=== PATIENT | female | born 1945 | race Caucasian/White ===

== ENCOUNTER 2018-02-04 10:00 | Outpatient (CLI) | payer BC ==
[2018-02-04 10:59] LABS: #Eosinphils 0.1 thou/uL (0.0-0.7); #Lymphocytes 1.3 thou/uL (1.20-3.40); #Monocytes 0.6 thou/uL (0.11-0.59); #Neutrophils 3.2 thou/uL (1.40-6.50); %Basophils 0.5 % (0.0-1.0); %Eosinophils 2.1 % (0.0-10.0); %Lymphocytes 25.4 % (21.0-51.0); %Monocytes 10.7 % (0.0-10.0); %Neutrophils 61.2 % (42.0-75.0); Hemoglobin 13.9 g/dL (12.0-16.0); Mean Corpuscular HGB CONC 34.2 g/dL (32.0-36.0); Mean Corpuscular Volume 90.8 fl (81.0-99.0); Mean Platelet Volume 7.1 fL (7.4-10.4); Platelet Count 242 thou/uL (130-400); Red Blood Cell (RBC) Count 4.47 mill/uL (4.20-5.40); White Blood Cell (WBC) Count 5.2 thou/uL (4.8-10.8)
[2018-02-04 11:25] LABS: ALT (SGPT) 28 U/L (8-55); AST (SGOT) 16 U/L (5-34); Albumin 4.6 g/dL (3.4-4.8); Alkaline Phosphatase 77 U/L (40-150); Anion Gap 13 mmol/L (10-20); BUN (Urea Nitrogen) 12 mg/dL (9.8-20.1); Bilirubin, Direct 0.2 mg/dL (0.1-0.3); Bilirubin, Total 0.7 mg/dL (0.2-1.2); Calc. Creatinine Clearance 0 mL/min (70-130); Calcium 9.7 mg/dL (7.8-10.44); Carbon Dioxide 27 mmol/L (23-31); Chloride 103 mmol/L (98-107); Estimated GFR-MDRD 68; Glucose 94 mg/dL (83-110); Potassium 4.3 mmol/L (3.5-5.1); Protein, Total 7.1 g/dL (6.0-8.3); Sodium 139 mmol/L (136-145)
== END 2018-02-04 10:01 | disposition home or self-care (01) ==
LOC: LABBT 10:00
PROVIDERS: ATTEND Surgery
DX: Z01.818 Encounter for other preprocedural examination (principal); K80.20 Calculus of gallbladder without cholecystitis without obstruction
CPT/HCPCS: 80048; 80076; 85025; 93005; 93010

== ENCOUNTER 2018-02-05 07:00 | Day surgery (SDC) | payer BC ==
[2018-02-04 10:17] VITALS: BMI 25.1
[2018-02-05] MEDS ORDERED: cefOXitin 2 GM VIAL ONE (07:18)
[2018-02-05] MEDS ORDERED: Sodium Chloride 0.9% 100 ML ONE (07:18)
[2018-02-05] MEDS ORDERED: Morphine 4 MG/ML VIAL ONE (09:11)
[2018-02-05] MEDS ORDERED: Fentanyl 100 MCG/2 ML VIAL ONE (09:11)
[2018-02-05] MEDS ORDERED: Bupivacaine/Epinephrine 0.25% 30 ML VIAL ONE (09:12)
[2018-02-05] MEDS ORDERED: Ondansetron HCl/PF 4 MG/2 ML Vial ONE (10:28)
[2018-02-05] MEDS ORDERED: Promethazine HCl 25 MG/ML VIAL ONE (10:28)
--- NOTE | 2018-02-05 14:06 | OP ---
PREOPERATIVE DIAGNOSIS: Symptomatic gallstones. POSTOPERATIVE DIAGNOSIS: Symptomatic gallstones. PROCEDURE: Laparoscopic cholecystectomy. SURGEON: Kolby Machado M.D. ANESTHESIA: General. ESTIMATED BLOOD LOSS: Minimal. COMPLICATIONS: None. FINDINGS: Chronic cholecystitis. PROCEDURE IN DETAIL: The patient was taken to the Operating Room and laid supine on the Operating Ro om table. After general anesthetic was obtained, the abdomen was prepped and draped in a sterile fas hion. A curved incision was made below the umbilicus. Cautery was used to dissect down to the umbil ical fascia. Umbilical fascia was incised and held up using a Brodie. The abdominal cavity was ente red using a Marisol clamp. Holding stitch of Vicryl was placed on each side of the fascia. Limon tro car was placed. High-flow pneumoperitoneum was obtained. An upper midline 5-mm port and two right u pper quadrant 5-mm ports were placed under direct camera visualization. The gallbladder was retracte d from the gallbladder fossa. The peritoneum of the gallbladder was opened anteriorly and posteriorl y. The critical view triangle was seen showing only the cystic duct and cystic artery branching from medial to lateral. There were no other branching structures. Two clips were placed proximally on t he cystic duct and one laterally. It was cut using laparoscopic scissors. The cystic artery was luz maria en in the same way. Electrocautery was then used to dissect the gallbladder out of the gallbladder f terry. The gallbladder was placed in an Endo catch bag and brought out through the Limon. There was no bleeding or bile in the liver bed. The cystic duct stump and cystic artery stump were intact wit hout evidence of extravasation or bleeding. All port sites were infiltrated using local anesthesia. All ports were removed under camera visualization. Pneumoperitoneum was let down. The Vicryl was u sed to close the fascial defect below the umbilicus. All incisions were irrigated and closed using 4 -0 Monocryl and DermaBond. The patient was en route to Recovery in stable condition. All instrument counts, needle counts and lap counts were correct.
[2018-02-05] MEDS ORDERED: PHENYLEPHRINE-NS 100 MCG/ML 10 ML SYRINGE ONE (16:14)
[2018-02-05] MEDS ORDERED: Lidocaine 1% PF 5 ML VIAL ONE (16:14)
[2018-02-05] MEDS ORDERED: Glycopyrrolate 0.2 MG/ML 5 ML SYRINGE ONE (16:14)
[2018-02-05] MEDS ORDERED: PROPOFOL 200 MG/20 ML VIAL ONE (16:14)
[2018-02-05] MEDS ORDERED: Ketorolac Tromethamine 30 MG/ML VIAL ONE (16:14)
[2018-02-05] MEDS ORDERED: Dexamethasone 20 MG/5 ML VIAL ONE (16:14)
== END 2018-02-05 12:54 | disposition home or self-care (01) ==
LOC: SDC 07:00
PROVIDERS: ATTEND Surgery
PROC: 0FT44ZZ Resection of Gallbladder, Percutaneous Endoscopic Approach (ICD-10-PCS; principal; 2018-02-05)
DX: K81.1 Chronic cholecystitis (principal); K21.9 Gastro-esophageal reflux disease without esophagitis; K58.9 Irritable bowel syndrome, unspecified; F32.9 Major depressive disorder, single episode, unspecified; Z88.0 Allergy status to penicillin; Z79.899 Other long term (current) drug therapy
CPT/HCPCS: 88304; 96374; J0694; J1100; J1885; J2001; J2270; J2405; J2550; J2704; J3010; J7050

== ENCOUNTER 2018-03-14 10:48 | Outpatient (CLI) | payer BC | END 2018-03-14 10:49 | disposition home or self-care (01) | LOC: BICMAMMO 10:48 | PROVIDERS: ATTEND Obstetrics & Gynecology | DX: Z12.31 Encounter for screening mammogram for malignant neoplasm of breast (principal); Z80.3 Family history of malignant neoplasm of breast | CPT/HCPCS: 77063; 77067 ==

== ENCOUNTER 2019-03-18 14:23 | Outpatient (CLI) | payer BC ==
--- NOTE | 2019-03-18 15:07 | MMO ---
Bilateral MAMMO Bilat Screen [facility]. CLINICAL HISTORY: Patient is 73 years old and is seen for screening. The patient has the following family history of breast cancer: mother, at age 84. The patient has no personal history of cancer. VIEWS: The views performed were: bilateral craniocaudal with tomosynthesis and bilateral mediolateral oblique with tomosynthesis. FILMS COMPARED: The present examination has been compared to prior imaging studies performed at [facility] [place] on 12/17/2013, 12/28/2015, 03/05/2017 and 03/14/2018. MAMMOGRAM FINDINGS: There are scattered fibroglandular densities. There are no suspicious masses, suspicious calcifications, or new areas of architectural distortion. IMPRESSION: THERE IS NO MAMMOGRAPHIC EVIDENCE OF MALIGNANCY. A ROUTINE FOLLOW-UP MAMMOGRAM IN 1 YEAR IS RECOMMENDED. THE RESULTS OF THIS EXAM WERE SENT TO THE PATIENT. ACR BI-RADS Category 1 - Negative MAMMOGRAPHY NOTE: 1. A negative mammogram report should not delay a biopsy if a dominant of clinically suspicious mass is present. 2. Approximately 10% to 15% of breast cancers are not detected by mammography. 3. Adenosis and dense breasts may obscure an underlying neoplasm. Reported by: PROSPER NOBLE MD Electonically Signed: [id number]
--- NOTE | 2019-03-18 15:11 | RAD ---
2 views lumbar spine: 03/18/2019 COMPARISON: None HISTORY: Low back pain FINDINGS: 5 lumbar type vertebral bodies are present. Pedicles appear intact on frontal imaging. Clip s in the right upper quadrant suggest prior cholecystectomy. Lateral exam demonstrates normal vertebral body height and alignment. At L1-2 and L2-3 there is mild disc space narrowing and anterior osteophyte formation. No acute osseous abnormality noted. IMPRESSION: Mild degenerative change within the lumbar spine.
--- NOTE | 2019-03-18 15:56 | RAD ---
PELVIS ONE VIEW: 03/18/19 HISTORY: Low back pain. COMPARISON: None. FINDINGS: Mild narrowing of both hip joints. Obturator rings are intact. SI joints are normal. IMPRESSION: No dilated loops of large or small bowel in the pelvis. Sacrum is intact. IMPRESSION: Minimal degenerative changes of both hips. POS: HOME
--- NOTE | 2019-03-18 15:58 | RAD ---
LEFT HIP TWO VIEW: 03/18/19 HISTORY: Pain. COMPARISON: None. FINDINGS: Minimal narrowing of the left hip joint. Small acetabular osteophyte formation. Obturator ring is int act. IMPRESSION: Low grade degenerative change left hip. POS: HOME
--- NOTE | 2019-03-18 16:00 | RAD ---
RIGHT HIP 2 VIEWS: HISTORY: Pain. COMPARISON: None. FINDINGS: Small acetabular osteophyte formation and hip joint narrowing. The obturator ring is intact. Soft t issues unremarkable. IMPRESSION: Mild degenerative change. POS: HOME
== END 2019-03-18 14:24 | disposition home or self-care (01) ==
LOC: BICMAMMO 14:23
PROVIDERS: ATTEND Obstetrics & Gynecology
DX: Z12.31 Encounter for screening mammogram for malignant neoplasm of breast (principal); M25.551 Pain in right hip; M25.552 Pain in left hip; M54.5 Low back pain; M16.0 Bilateral primary osteoarthritis of hip; M47.816 Spondylosis without myelopathy or radiculopathy, lumbar region; Z80.3 Family history of malignant neoplasm of breast
CPT/HCPCS: 72100; 72170; 77063; 77067

== ENCOUNTER 2019-10-02 09:28 | Outpatient (CLI) | payer BC ==
--- NOTE | 2019-10-02 10:35 | ULT ---
EXAM: US Hepatic Doppler PROVIDED CLINICAL HISTORY: Abnormal liver enzymes COMPARISON: CT abdomen on 03/31/2015 FINDINGS: There is a heterogeneous mass seen in the right hepatic lobe measuring 2.8 cm in maximal dimensions. A hemangioma was seen in the right hepatic lobe on study of 03/31/2015, and on that study the hemangioma measured approximately 2 cm. No additional hepatic lesion is identified. The spleen is normal in size and has a normal sonographic appearance. The visualized portions of the pancreas and visualized portion of the IVC demonstrate a normal sonogr aphic appearance. There is suggestion of mild atherosclerotic plaque in the proximal abdominal aorta. Hepatic Doppler evaluation with spectral analysis and color flow: Normal directional flow is seen within the hepatic, portal, and splenic veins. Arterial waveforms are documented within the hepatic and splenic arteries. IMPRESSION: 1. Heterogeneous mass right hepatic lobe which is thought to correspond to the hemangioma seen on CT abdomen in 2014. However, the lesion is larger in size on today's exam. 2. Liver and spleen are normal in size. Normal directional flow is seen within the splenic, hepatic, and portal veins.
== END 2019-10-02 09:29 | disposition home or self-care (01) ==
LOC: BICULT 09:28
PROVIDERS: ATTEND Internal Medicine Gastroenterology
DX: M06.9 Rheumatoid arthritis, unspecified (principal); K58.0 Irritable bowel syndrome with diarrhea; R74.8 Abnormal levels of other serum enzymes; R16.0 Hepatomegaly, not elsewhere classified
CPT/HCPCS: 76705

== ENCOUNTER 2019-10-17 13:53 | Outpatient (CLI) | payer BC ==
[~2019-10-17 13:53] MED LIST: Magnevist 469MG/ML 20 ML VIAL ONE
--- NOTE | 2019-10-17 15:47 | MRI ---
MRI ABDOMEN WITH AND WITHOUT IV CONTRAST: 10/17/19 HISTORY: Liver mass. COMPARISON: Abnormal ultrasound of 10/02/2019. FINDINGS: There is a 2.8 x 2.4 x 2.1 cm well circumscribed T2 hyperintense mass in the right lobe of the liver, which demonstrates peripheral nodular enhancement and centripetal filling on early and delayed postc ontrast images respectively, consistent with a benign hemangioma. A tiny cyst is seen in the left kid mitchell with high T2, low T1 signal and no postcontrast enhancement. The spleen, pancreas, adrenal glands , right kidney appear normal. The patient is post cholecystectomy. No abnormal biliary or pancreatic ductal dilatation is seen. No free fluid or lymphadenopathy is seen in the abdomen. There is no evide nce of aneurysmal dilatation of the abdominal aorta. The bone marrow signal is normal. IMPRESSION: Liver hemangioma. POS: [facility]
== END 2019-10-17 13:54 | disposition home or self-care (01) ==
LOC: BICMRI 13:53
PROVIDERS: ATTEND Internal Medicine Gastroenterology
DX: R16.0 Hepatomegaly, not elsewhere classified (principal); D18.03 Hemangioma of intra-abdominal structures
CPT/HCPCS: 74183; 82565

== ENCOUNTER 2020-06-11 14:04 | Outpatient (CLI) | payer BC ==
--- NOTE | 2020-06-11 14:28 | MMO ---
Bilateral MAMMO Bilat Screen [facility]. CLINICAL HISTORY: Patient is 74 years old and is seen for screening. The patient has the following family history of breast cancer: mother, at age 84 and niece. The patient has no personal history of cancer. VIEWS: The views performed were: bilateral craniocaudal with tomosynthesis and bilateral mediolateral oblique with tomosynthesis. FILMS COMPARED: The present examination has been compared to prior imaging studies performed at [facility] on 12/28/2015, 03/05/2017, 03/14/2018 and 03/18/2019. This study has been interpreted with the assistance of computer-aided detection. MAMMOGRAM FINDINGS: There are scattered fibroglandular densities. There are no suspicious masses, suspicious calcifications, or new areas of architectural distortion. IMPRESSION: THERE IS NO MAMMOGRAPHIC EVIDENCE OF MALIGNANCY. A ROUTINE FOLLOW-UP MAMMOGRAM IN 1 YEAR IS RECOMMENDED. THE RESULTS OF THIS EXAM WERE SENT TO THE PATIENT. ACR BI-RADS Category 1 - Negative MAMMOGRAPHY NOTE: 1. A negative mammogram report should not delay a biopsy if a dominant of clinically suspicious mass is present. 2. Approximately 10% to 15% of breast cancers are not detected by mammography. 3. Adenosis and dense breasts may obscure an underlying neoplasm. Reported by: CATHERINE GRIMES MD Electonically Signed: [id number]
== END 2020-06-11 14:05 | disposition home or self-care (01) ==
LOC: BICMAMMO 14:04
PROVIDERS: ATTEND Obstetrics & Gynecology
DX: Z12.31 Encounter for screening mammogram for malignant neoplasm of breast (principal); Z80.3 Family history of malignant neoplasm of breast
CPT/HCPCS: 77063; 77067

== ENCOUNTER 2022-05-26 08:49 | Outpatient (CLI) | payer BC | END 2022-05-26 08:50 | disposition home or self-care (01) | LOC: BICMAMMO 08:49 | PROVIDERS: ATTEND Internal Medicine Rheumatology | DX: Z13.820 Encounter for screening for osteoporosis (principal); M85.89 Other specified disorders of bone density and structure, multiple sites; Z78.0 Asymptomatic menopausal state | CPT/HCPCS: 77080 ==

== ENCOUNTER 2022-09-22 07:41 | Outpatient (CLI) | payer BC ==
[2022-09-22] MEDS ORDERED: Iopamidol-370 76% 500 ML 1 ML ONE (09:45)
== END 2022-09-22 07:42 | disposition home or self-care (01) ==
LOC: BICCT 07:41
PROVIDERS: ATTEND Physician Assistant Medical
DX: R10.31 Right lower quadrant pain (principal); R10.32 Left lower quadrant pain; R19.7 Diarrhea, unspecified
CPT/HCPCS: 74177; 82565; Q9967

== ENCOUNTER 2022-12-11 10:06 | Emergency (ER) | payer BC ==
[2022-12-11 11:17] LABS: ALT (SGPT) 38 U/L (8-55); AST (SGOT) 20 U/L (5-34); Albumin 4.4 g/dL (3.4-4.8); Alkaline Phosphatase 84 U/L (40-110); Anion Gap 14 mmol/L (10-20); BUN (Urea Nitrogen) 13 mg/dL (9.8-20.1); Bilirubin, Total 0.5 mg/dL (0.2-1.2); Calc. Creatinine Clearance 0 mL/min (70-130); Calcium 9.6 mg/dL (7.8-10.44); Carbon Dioxide 24 mmol/L (23-31); Chloride 105 mmol/L (98-107); Estimated GFR 65; Globulin 2.8 g/dL (2.4-3.5); Glucose 97 mg/dL (83-110); Potassium 4.3 mmol/L (3.5-5.1); Protein, Total 7.2 g/dL (5.8-8.1); Sodium 139 mmol/L (136-145)
[2022-12-11 11:25] LABS: #Basophils 0.1 thou/uL (0.0-0.2); #Eosinphils 0.1 thou/uL (0.0-0.7); #Monocytes 0.5 thou/uL (0.11-0.59); #Neutrophils 3.7 thou/uL (1.40-6.50); %Basophils 1.1 % (0.0-1.0); %Eosinophils 1.8 % (0.0-10.0); %Lymphocytes 18.2 % (21.0-51.0); %Monocytes 9.2 % (0.0-10.0); %Neutrophils 69.6 % (42.0-75.0); Hemoglobin 13.9 g/dL (12.0-16.0); Mean Corpuscular Hemoglobin 31.7 pg (27.0-31.0); Mean Corpuscular Volume 93.2 fl (78.0-98.0); Platelet Count 231 10x3/uL (130-400); RBC Distribution Width 12.4 % (11.5-14.5); Red Blood Cell (RBC) Count 4.38 mill/uL (4.20-5.40); White Blood Cell (WBC) Count 5.3 10x3/uL (4.8-10.8)
== END 2022-12-11 12:44 | disposition home or self-care (01) ==
LOC: ERS 10:06
DX: R07.89 Other chest pain (principal); E03.9 Hypothyroidism, unspecified; K21.9 Gastro-esophageal reflux disease without esophagitis
CPT/HCPCS: 36415; 71045; 80053; 84484; 85025; 93005

== ENCOUNTER 2022-12-27 14:31 | Outpatient (CLI) | payer BC | END 2022-12-27 14:32 | disposition home or self-care (01) | LOC: ULT 14:31 | PROVIDERS: ATTEND Nurse Practitioner Family | DX: R07.9 Chest pain, unspecified (principal); I51.7 Cardiomegaly | CPT/HCPCS: 93306 ==

== ENCOUNTER 2023-11-05 08:34 | Outpatient (CLI) | payer BC | END 2023-11-05 08:35 | disposition home or self-care (01) | LOC: CT 08:34 | PROVIDERS: ATTEND Internal Medicine Gastroenterology | DX: K21.9 Gastro-esophageal reflux disease without esophagitis (principal); K58.0 Irritable bowel syndrome with diarrhea; D18.03 Hemangioma of intra-abdominal structures; R10.9 Unspecified abdominal pain; R94.5 Abnormal results of liver function studies | CPT/HCPCS: 74177 ==

== ENCOUNTER 2024-09-13 09:21 | Emergency (ER) | payer BC, OTHER ==
[2024-09-13] MEDS ORDERED: Acetaminophen/Codeine 30-300mg Tablet ONE (09:53)
[2024-09-13] MEDS ORDERED: Ketorolac Tromethamine 30 MG (1 mL) VIAL ONE (11:54)
[2024-09-13] MEDS ORDERED: predniSONE 20 MG TAB ONE (11:55)
== END 2024-09-13 12:06 | disposition home or self-care (01) ==
LOC: ERS 09:21
DX: M54.41 Lumbago with sciatica, right side (principal)
CPT/HCPCS: 96372; J1885; J7512